=== PATIENT | female | born 1960 | race Caucasian/White ===

== ENCOUNTER 2022-08-08 08:30 | Outpatient (CLI) | payer OTHER, SELFPAY ==
[2022-08-08 10:16] LABS: Chloride* 104 mmol/L (96-114); Potassium* 4.7 mmol/L (3.6-5.1); Sodium* 139 mmol/L (135-149)
[2022-08-08 10:19] LABS: Blood Urea Nitrogen* 14 mg/dL (7-30); Carbon Dioxide* 29 mmol/L (20-32); Cholesterol* 221 mg/dL (90-199); Creatinine* 0.5 mg/dL (0.5-1.5); Estimated Glomerular Filt Rate 106 ml/min
[2022-08-08 10:20] LABS: Calcium* 8.8 mg/dL (8.4-10.6); Glucose* 88 mg/dL (60-115); HDL Cholesterol* 105 mg/dL (>=50); LDL Cholesterol Calculated 100 mg/dL (<100); Triglycerides* 79 mg/dL (40-149)
[2022-08-08 10:34] LABS: Creatinine Urine 113.9 mg/dL
[2022-08-08 10:38] LABS: Microalbumin Creatinine Ratio 0 mg/g (0-30); Microalbumin Urine < 1 mg/dL
== END 2022-08-08 08:31 | disposition home or self-care (01) ==
PROVIDERS: PCP Family Medicine; Visit Provider Family Medicine
DX: Z00.00 Encounter for general adult medical examination without abnormal findings (principal); E10.9 Type 1 diabetes mellitus without complications; I10 Essential (primary) hypertension; Z13.6 Encounter for screening for cardiovascular disorders
CPT/HCPCS: 80048; 80061; 82043; 82570

== ENCOUNTER 2023-10-09 09:26 | Outpatient (CLI) | payer OTHER, SELFPAY | END 2023-10-09 09:27 | disposition home or self-care (01) | LOC: NFLDREF 09:27 | PROVIDERS: PCP Family Medicine; Visit Provider Family Medicine | DX: I10 Essential (primary) hypertension (principal); E10.9 Type 1 diabetes mellitus without complications | CPT/HCPCS: 80048; 80061 ==

== ENCOUNTER 2023-10-21 08:29 | Outpatient (CLI) | payer OTHER, SELFPAY ==
--- OUTSIDE RECORDS SUMMARY | 2023-10-21 08:31 | XMS_ITS | Clinical Summary ---
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 EHR Incentive [facility],which states Providers who transition their patient to another setting of careor provider of care or refers their patient to another provider of care shouldprovide summary care record for each transition of care or referral. [facility] Allergies No known active allergies Medications Medication Sig Dispensed Refills Start Date End Date Status 1nsulin syringe-needle 31G X 5/16 inch 0.3 mL (BD INSULIN SYRINGE ULTRAFINE) 31G X 5/16 0.3 ML Inject 3-4 [place] subcutaneously daily (every 24 hours). LW Addl Instr:Indicated for: Diabetes 100 3 12/16/2010 Active Insulin Infusion Pump Supplies [employer]-Insulin pump supplies (infusion sets and cartridge) 90 each 3 09/15/2013 Active Blood Glucose Monitoring Suppl (TRUE METRIX AIR GLUCOSE METER) W/DEVICE KIT To test glucose with insulin pump 1 each 0 11/22/2014 Active aspirin 81 MG tabletIndications: Type 1 diabetes mellitus without complication (HRC) Take 1 Tab by mouth daily. 100 Tab 3 09/02/2017 Active KRISS CONTOUR NEXT test stripsIndications: Type 1 diabetes mellitus without complication (HRC) USE 1 STRIP TO TEST SIX TIMES A DAY. 600 Strip 3 01/20/2018 Active Continuous Blood Gluc Fruit And Vegetable Inspector ([employer] ALFREDO READER) SELENE Use with [employer]io Personal Sensors 1 Device 0 02/18/2018 Active Continuous Blood Gluc Sensor (FREESTYLE ALFREDO SENSOR SYSTEM) MISC 1 sensor every 10 days 3 Each 11 02/18/2018 Active insulin aspart (NOVOLOG) 100 UNIT/ML injection (vial)Indications: Type 1 diabetes mellitus without complication (HRC) INJECT SUBCUTANEOUSLY 35 TO 45 UNITS PER DAY VIA INSULIN PUMP. 40 mL 1 01/10/2019 Active blood glucose (KRISS CONTOUR NEXT) test stripIndications:T ype 1 diabetes mellitus without complication (HRC) Use 1 Strip to test six times a day. 600 Strip 3 01/10/2019 Active insulin glargine (LANTUS) 100 UNIT/ML injection Inject 14 Units subcutaneously daily. For pump failure. 10 mL 1 01/10/2019 Active glucagon, human recombinant, (GLUCAGON,HUMAN RECOMBINANT) 1 MG injection Inject 1 mg subcutaneously once for 1 dose. 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 oniel litus 01/10/2019 Macular degeneration 04/01/2017 Insulin pump status 01/29/2012 Type 1 diabetes mellitus 12/28/2003 Overview: LW Onset: [id number] Asymptomatic varicose veins 12/28/2003 Overview: LW Onset: [id number] ; Varicose Veins Resolved Problems Problem Noted Date Diagnosed Date Resolved Date 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 04/01/2017 04/01/2017 Immunizations Name Administration Dates Next Due Flu Vac Preserv Free (3+yrs) 07/18/2010,08/06/20 09,08/22/2005 Influenza IIV4 (Quadrivalent) 0.5mL (32667) 10/2014 Influenza, Unspecified Formulation 09/22/2003 PPSV23 (Pneumovax) 08/22/2005 TDAP (BOOSTRIX) 05/25/2013 Td 12/28/2003 Family History Medical History Relation Name Comments Cancer Mother pancreatic Diabetes Brother 1 Diabetes Brother 2 Heart Disease Maternal Grandfather Cancer Maternal Grandmother Relation Name Status Comments Father Alive Mother Brother 1 Alive Brother 2 Alive Brother 3 Alive Maternal Grandfather Maternal Grandmother Paternal Grandfather Paternal Grandmother Sister Alive Social History Tobacco Use Types Packs/Day Years Used Date Smoking Tobacco: Never Smokeless Tobacco: Never Alcohol Use Standard Drinks/Week Comments Yes 2 (1 standard drink = 0.6 oz pur e alcohol) 2-3 drinks weekly Sex and Gender Information Value Date Recorded Sex Assigned at Not on file Gender Identity Not on file Sexual Orientation Not on file Last Filed Vital Signs Vital Sign Reading Time Taken Comments Blood Pressure 133/69 01/10/2019 9:51 AM CDT Pulse 71 01/10/2019 9:51 AM CDT Temperature 36.6 ??C (97.9 ??F) 08/13/2010 2 :06 PM CDT ORAL C: 36.6 C Respiratory Rate 16 08/13/2010 2:06 PM CDT Oxygen Saturation 99% 07/18/2010 11: 36 AM CDT Inhaled Oxygen Concentration - - Weight 67.8 kg (149 lb 6.4 oz) 01/10/2019 9:51 AM CDT Height 172 cm (5' 7.72) 01/10/2019 9:5 1 AM CDT Body Mass Index 22.91 01/10/2019 9:51 AM CDT Plan of Treatment Health Maintenance Due Date Last Done Comments Colon Cancer Screening Plan Due 1960 Diabetes: Eye Exam 1960 Hep C Screening (Preventive Services) 1960 COVID-19 Vaccine (#1) 1960 HIV Screening (Preventive Services) 1976 Adult Preventive Visit 01/23/1978 Pneumococcal (2 - PCV) 08/22/2006 08/22/2005 Zoster/Shingles (1 of 2) 01/23/2010 Mammogram 12/08/2012 12/08/2011, 01/11, 12/15/2008, Additional history exists Cervical Cancer Screening Due 06/02/2014 06/01/2014, 05/25/2013, 01/19/2009, Additional history exists Diabetes: Foot Exam 09/07/2018 09/07/2017 (Completed ) Diabetes: Creatinine 12/08/2018 12/08/2017, 12/24/2016, 12/27/2013, Additional history exists Diabetes: Urine Microalbumin 12/08/2018 12/08/2017, 12/24/2016, 07/12/2015, Additional history exists Diabetes: HGBA1C 04/11/2019 01/10/2019, , 12/08/2017, Additional history exists Diabetes: Lipid Panel 12/08/2022 12/08/2017 , 12/24/2016, 07/12/2015, Additional history exists DTaP/Tdap/Td (2 - Tdap) 05/25/2023 05/25/2013, 12/27 Influenza (#1) 2023 07/13/2020, 08/13, 08/09/2018, Additional history exists HepA Aged Out No longer eligi ble based on patient's age to complete this topic HepB Aged Out No longer eligi ble based on patient's age to complete this topic Hib Aged Out No longer eligi ble based on patient's age to complete this topic IPV ([place]) Aged Out No longer eligi ble based on patient's age to complete this topic MCV4 Aged Out No longer eligi ble based on patient's age to complete this topic Care Teams Solar Pool Heating Installer Relationship Specialty Start Date End Date Clinician, Not Found, [place] [address] PCP - General 03/19/18
--- NOTE | 2023-10-21 08:45 | CRLHL7_ITS ---
For Patients: As a result of the Cures Act, medical imaging exams and procedure reports are released immediately into your electronic medical record. You may view this report before your referring provider. If you have questions, please contact your health care provider. BILATERAL SCREENING MAMMOGRAM WITH COMPUTER-AIDED DETECTION AND TOMOSYNTHESIS TECHNIQUE: CC and MLO views were obtained. These mammographic images have been obtained using full-field digital technique. These mammographic images were interpreted with the benefit of computer-aided detection. Breast Tomosynthesis was used in this interpretation. COMPARISON FILM: 02/06/22, 11/12/20, 05/04/19. FINDINGS: There are scattered areas of fibroglandular density IMPRESSION: There is no radiographic evidence for malignancy. ASSESSMENT: BI-RADS Category 1: Negative RECOMMENDATION: Routine screening mammogram in 1 year. A lay language report of this examination will be provided to the patient. HENNY DESAI M.D. Diagnostic/Nuclear Medicine Radiologist [email or web address] AUGIE:[email or web address] Transcribed: 3:12 p.mJaren walker/Dictated by: Henny Desai MD @ 10/22/2023 8:38:00 AM (Electronically Signed)
== END 2023-10-21 08:30 | disposition home or self-care (01) ==
LOC: MAMMO 08:30
PROVIDERS: PCP Family Medicine; Visit Provider Family Medicine
DX: Z12.31 Encounter for screening mammogram for malignant neoplasm of breast (principal)
CPT/HCPCS: 77063; 77067

== ENCOUNTER 2025-01-06 13:08 | Outpatient (CLI) | payer OTHER, SELFPAY ==
--- NOTE | 2025-01-06 13:20 | CRLHL7_ITS ---
For Patients: As a result of the Century Cures Act, medical imaging exams and procedure reports are released immediately into your electronic medical record. You may view this report before your referring provider. If you have questions, please contact your health care provider. BILATERAL SCREENING MAMMOGRAM WITH COMPUTER-AIDED DETECTION AND TOMOSYNTHESIS TECHNIQUE: CC and MLO views were obtained. These mammographic images have been obtained using full-field digital technique. These mammographic images were interpreted with the benefit of computer-aided detection. Breast Tomosynthesis was used in this interpretation. COMPARISON FILM: 10/21/23, 02/06/22, 12/13/21. FINDINGS: There are scattered areas of fibroglandular density. IMPRESSION: There is no radiographic evidence for malignancy. ASSESSMENT: BI-RADS Category 1: Negative RECOMMENDATION: Routine screening mammogram in 1 year. A lay language report of this examination will be provided to the patient. Adam Haskins M.D. Diagnostic Radiologist [email or web address] SP/Dictated by: Adam Haskins MD @ 01/12/2025 10:30:00 AM (Electronically Signed)
== END 2025-01-06 13:09 | disposition home or self-care (01) ==
LOC: MAMMO 13:08
PROVIDERS: PCP Family Medicine; Visit Provider Family Medicine
DX: Z12.31 Encounter for screening mammogram for malignant neoplasm of breast (principal)
CPT/HCPCS: 77063; 77067

== ENCOUNTER 2025-01-25 09:49 | Outpatient (CLI) | payer MEDICARE, SELFPAY ==
[2025-01-25 14:11] LABS: Creatinine Urine 21.1 mg/dL
[2025-01-25 14:16] LABS: Microalbumin Creatinine Ratio 40 mg/g (0-30); Microalbumin Urine < 1 mg/dL
== END 2025-01-25 09:50 | disposition home or self-care (01) ==
PROVIDERS: PCP Family Medicine; Visit Provider Family Medicine
DX: E10.9 Type 1 diabetes mellitus without complications (principal); I10 Essential (primary) hypertension; Z13.6 Encounter for screening for cardiovascular disorders; Z79.4 Long term (current) use of insulin
CPT/HCPCS: 80048; 80061; 82043; 82570

== ENCOUNTER 2025-04-28 11:30 | Outpatient (CLI) | payer MEDICARE, SELFPAY | END 2025-04-28 11:31 | disposition home or self-care (01) | LOC: NFLDREF 04-30 05:58 | PROVIDERS: PCP Family Medicine; Referring Provider Family Medicine; Visit Provider Family Medicine | DX: E10.9 Type 1 diabetes mellitus without complications (principal); I10 Essential (primary) hypertension; B35.1 Tinea unguium | CPT/HCPCS: 82947; 84681 ==

== ENCOUNTER 2025-08-10 10:28 | Outpatient (CLI) | payer MEDICARE, SELFPAY | END 2025-08-10 10:29 | disposition home or self-care (01) | PROVIDERS: PCP Family Medicine; Visit Provider Family Medicine | DX: R53.83 Other fatigue (principal) | CPT/HCPCS: 82306; 84443 ==

== ENCOUNTER 2025-09-27 08:19 | Outpatient (CLI) | payer MEDICARE, SELFPAY ==
--- NOTE | 2025-09-27 08:30 | CRLHL7_ITS ---
For Patients: As a result of the Century Cures Act, medical imaging exams and procedure reports are released immediately into your electronic medical record. You may view this report before your referring provider. If you have questions, please contact your health care provider. XR DXA Bone Mineral Density (BMD) Reason for exam: Screening for osteoporosis. Current height (inches): 66.0 Weight (lbs.): 148.0 Menopause age: 55 Ethnicity: White 1. Have you had a previous hip or vertebral fracture? No. 2. Have you had any fractures during your adult life which did not result from significant trauma (e.g., auto accident)? No. 3. Did either of your parents have a hip fracture? No. 4. Do you smoke? No. 5. Have you ever taken Glucocorticoids? No. 6. Do you have rheumatoid arthritis? No. 7. Do you have secondary osteoporosis? No. 8. Do you drink 3 or more alcoholic drinks per day? No. 9. Are you being treated for osteoporosis? No. 10. Have you ever taken any of the following medications: Actonel, Evista, Fosamax, Miacalcin, Reclast, Boniva, Forteo, HRT (i.e., estrogen/hormone therapy), Protelos, Prolia, Vitamin D, Calcium, other ??? please specify. ANSWER: Yes; vitamin D and calcium. 11. Do you have any of the following medical conditions: Anorexia or bulimia, asthma or emphysema, end stage renal disease, hyperparathyroidism, any seizure disorders, cancer, inflammatory bowel diseases, hysterectomy, other ??? please specify. ANSWER: No. 12. What was your maximum height (inches)? 66. 13. Do you perform weightbearing exercise regularly? Yes. 14. Do you regularly consume dairy products? Yes. 15. Do you drink caffeinated beverages? Yes. 16. At what age did your period start? 16. 17. Are you premenopausal? No. 18. How many full-term pregnancies have you had? 3. 19. Have you ever missed your period for more than 6 months in a row (not including or menopause)? No. TECHNIQUE: Bone mineral density study was performed using the shipbeat. FINDINGS: The results of the study expressed as bone mineral density (BMD) are as follows: Lumbar Spine L1 to L4: BMD: 0.874 g/cm2. T-score: -1.6. Z-score: 0.2. HIP: Left Femoral Neck: BMD: 0.780 g/cm2. T-score: -0.6. Z-score: 0.9. Left Total Hip: BMD: 0.983 g/cm2. T-score: 0.3. Z-score: 1.6. IMPRESSION: Osteopenia. FRAX 10-year Fracture Risk Major Osteoporotic Fracture: 7.3% Hip Fracture: 0.4% Reported Risk Factors: [place] () Neck BMD = 0.780, BMI = 23.9. ADAM RICCI M.D. Diagnostic Radiologist [email or web address] Transcribed: 2:[address]/Dictated by: Adam Ricci MD @ 09/27/2025 9:07:00 AM (Electronically Signed)
== END 2025-09-27 08:20 | disposition home or self-care (01) ==
LOC: RAD 08:21
PROVIDERS: PCP Family Medicine; Visit Provider Family Medicine
DX: Z13.820 Encounter for screening for osteoporosis (principal); M81.0 Age-related osteoporosis without current pathological fracture; Z79.899 Other long term (current) drug therapy
CPT/HCPCS: 77080

== ENCOUNTER 2025-10-08 02:50 | Emergency (ER) | payer MEDICARE, SELFPAY ==
--- OUTSIDE RECORDS SUMMARY | 2025-10-08 02:52 | XMS_ITS | Clinical Summary ---
Author Organization [facility] Address [address] [place] [address] Care Team Providers Care Director [facility] Name Role Phone Adam Noel MD Primary Care Provider + Allergies No known active allergies Medications MedicationSigDispense QuantityRefillsLast FilledStart DateEnd DateStatus NOVOLOG U-100 INSULIN ASPART 100 unit/mL injection Indications:Diabetes mellitus type 1, controlled, without complications (HC)Uses about 40 units a day per insulin pump. 40 mL 121Active lisinopriL (PRINIVIL; ZESTRIL) 10 mg tablet Take 10 mg by mouth once daily.04/09/2022ctive DexParastructure G4 Collaborative Teacher for continuous blood glucose monitor (CGM) To be used to read blood sugars follow explosion welder directions. 1 Each 04/22/2022ctive Active Problems ProblemNoted DateDiagnosed DateControlled diabetes mellitus type 1 without vjkeefxgvemnl59/08/2017 Resolved Problems ProblemNoted DateDiagnosed DateResolved DateScreen for colon oczocl0508/13/2016 08/09/2018 Overview (08/13/2016): Colonoscopy 07/2016 normal repeat in 10 years Immunizations ImmunizationAdministration DatesNext DueAMB Influenza, IIV3 (Age >=3 years)(Flu Clinic Only)08/17/2013Influenza, WYK637Pneumococcal Poly,23-Valent (Pneumovax)08/22/2005Tdap05/25/2013 Family History Medical HistoryRelationNameCommentsDiabetesBrother 1type 1Diabetes type IBrother 1DiabetesBrother 2Type 1CancerFathermesothelioma cancerCancer-pancreaticMother deceasedDiabetes type ISisterRelationNameStatusCommentsBrother 1Brother 2Father DeceasedMotherSister Social History Tobacco UseTypesPacks/DayYears UsedDateSmoking Tobacco: NeverSmokeless Tobacco: Never Tobacco Cessation:Counseling Given: Yes Alcohol UseStandard Drinks/WeekCommentsYes1 (1 standard drink = 0.6 oz pure alcohol)PHQ-2AnswerDate RecordedPHQ-2 TOTAL JSWGE673ocial Connections AnswerDate RecordedDo you often feel lonely or isolated from those around you?0 04/08/2024Financial Resource StrainAnswerDate RecordedDifficulty of Paying Living Jewxdufx826ifficulty of Paying Living ExpensesNot on file 04/08/2024Food InsecurityAnswerDate RecordedDo you worry your food will run out before you are able to buy more?Transportation NeedsAnswerDate RecordedDoes lack of transportation keep you from medical appointments?1 04/08/2024oes lack of transportation keep you from work, meetings or getting things that you need?UtilitiesAnswerDate RecordedDo you have trouble paying for utilities (for example, heat, electricity, water, phone)? CommentsNoSex and Gender InformationValueDate RecordedSex Assigned at BirthNot on fileLegal QuoArggbf90/06/2013 4:36 PM CSTGender IdentityNot on file Sexual OrientationNot on file Last Filed Vital Signs Vital SignReadingTime TakenCommentsBlood Nentorbt793/7906 7:07 AM CDT Wvzyh279104/08/2024 7:07 AM BVCIheoiiychjf11.5 ??C (97.7 ??F)07/01/2023 12:03 PM CDTRespiratory Rate--Oxygen Eykllxjeur449%04/08/2024 7:07 AM CDTInhaled Oxygen Concentration--Snjkfs95.9 kg (154 lb)04/08/2024 7:07 AM FEKTnmffi945.6 cm (5' 6)04/22/2022 1:16 PM CDTBody Mass Index24.8604/22/2022 1:16 PM CDT Plan of Treatment Health MaintenanceDue DateLast DoneCommentsHIV for age 15-Hepatitis C screening for age 18-7901/23/1978Pneumococcal series for age 50+ (2 of 2 - PCV)RSV vaccine for adults or (1 - Risk 50-74 years 1-dose series)01/23/2010Zoster (shingles) series for age 50+ (1 of 2) 01/23/2010Mammogram for age 40-75, 06/27/2015BMI (ht and wt on same day) for age 18+, 09/14/2018, 08/09/2018, Additional history existsDepression screening for age 12+, 08/09/2018, 08/19/2017Tetanus cpzwezf74Lipids for age 45-7508/09/2023 08/09/2018DEXA/DXA scan for age 65+5COVID-19 vaccine series (2024- season), 02/11/2022, 08/20/2021, Additional history existsInfluenza Vaccine (#1), 08/17/2013Colonoscopy through age 756110/13/2015, 08/13/2016Pap test for age 21-04/22/2022, 04/22/2022, 05/18/2014 (Completed outside of [facility])Hepatitis B series for 19+Aged OutNo longer eligible based on patient's age to complete this topic Procedures Procedure NamePriorityDate/TimeAssociated DiagnosisCommentsHPV HIGH RISKRoutine 04/22/2022 2:14 PM CDT Cervical cancer screening LIPID PANEL W REFLEX MEASURED LDLAdd On08/09/2018 9:04 AM CDT Diabetes mellitus type 1, controlled, without complications (HC) LESFCFMJRYR48/02/2016 7:47 AM CDT XR MAMMO BILAT SCREEN FFDM (IA)Pcmgyig2107/22/2016 10:50 AM CDT Visit for screening mammogram from Last 3 Months or Most Recently Relevant to Health Maintenance Results * HPV HIGH RISK (04/22/2022 2:14 PM CDT)ComponentValueRef RangeTest Method Analysis TimePerformed AtPathologist SignatureTYPE 16NegativeNegative 04/24/2022 4:32 PM CDTAL[facility]-CENTRAL LABORATORYTYPE 18 KhysmvkmPmzpvowm45/14/2022 4:32 PM CDSELECT [facility]ITALCENTRAL LABORATORYOTHER HIGH RISK MDIDVCgplirecPpoeqnre24/14/2022 4:32 PM CDSELECT [facility]TY [facility]PITALCENTRAL LABORATORYSpecimen (Source)Anatomical Location / LateralityCollection Method / VolumeCollection TimeReceived TimeOther (Cervical)Non-Blood / Xeixsjn1304/22/2022 2:14 PM CDT04/23/2022 11:53 AM CDT Narrative [facility]-CENTRAL LAB[facility]ATORY - 04/24/2022 4:32 PM CDT HPV types 16, 18, 31, 33, 35, 39, 45, 51, 52, 56, 58, 59, 66 and 68 DNA were undetectable or below the pre-set threshold. Methodology: Suman Saravanan 4800 HPV Test Authorizing ProviderResult TypeResult StatusHeather Melisa Peters [facility] FOR CHILDRENICROBIOLOGY Final ResultPerforming OrganizationAddressCity/State/ZIP CodePhone Number [facility]AL LABORATORY [address] [place] [address], * LIPID PANEL W REFLEX MEASURED LDL (08/09/2018 9:04 AM CDT)ComponentValueRef RangeTest MethodAnalysis TimePerformed AtPathologist Signature CHOLESTEROL,[id number] - 199 mg/dL08/09/2018 1:14 PM CDTDISTRICT OHIO COUNTY HOSPITALTRIGLYCERIDES48<150 mg/dL08/09/2018 1:14 PM CDTDISTRICT OHIO COUNTY HOSPITALHDL LOEWFNHKHJF58>40 mg/dL08/09/2018 1:14 PM CDTDISTRICT ONE [facility]GEENON-HDL BJXTMUBBNMU988<145 mg/dl08/09/2018 1:14 PM CDTDISTRICT OHIO COUNTY HOSPITALCHOL/HDL RATIO2.16<4.501 1:14 PM CDTDISTRICT OHIO COUNTY HOSPITALLDL VEQXKOUCRPV93<=130 mg/dL 08/09/2018 1:14 PM CDTDISTRICT OHIO COUNTY HOSPITALPROVIDER ORDERED KFJORYVSKRVK98/29/2018 1:14 PM CDTDISTRICT OHIO COUNTY HOSPITALSpecimen (Source)Anatomical Location / LateralityCollection Method / VolumeCollection TimeReceived TimeBloodBLOOD SPECIMEN / UnknownVenipuncture / Cwfrsib0408/09/2018 9:04 AM CDT1 9:04 AM CDT Narrative Authorizing ProviderResult TypeResult StatusDavid Andre Noel MDCHEMISTRY Final ResultPerforming OrganizationAddressCity/State/ZIP CodePhone Number [facility] [address] [place] [address] * COLONOSCOPY (08/13/2016 7:47 AM CDT)Specimen (Source)Anatomical Location / LateralityCollection Method / VolumeCollection TimeReceived Time08/13/2016 7:47 AM CDT Narrative 08/13/2016 7:47 AM CDT Patient Name: Lianne Shelton ? Procedure Date: 08/13/2016 ? Gender: Female ? Date of : 1960 Admit Type: Outpatient ? Procedure: ?Colonoscopy Proceduralist: ?Ramy Donnelly MD Indications/Pre-Op Diagnosis: Screening for colorectal malignant neoplasm, ?This is the patient's first colonoscopy Medications: ?Fentanyl 100 micrograms IV, Midazolam 2 mg IV, ?The level of sedation administered was moderate ? Procedure Description: ? The patient had risks, benefits and alternatives explained to and gave ? informed consent. The patient had a stable cardiopulmonary status and ? judged an adequate candidate for conscious sedation. ? The [facility]-Q290AL [id number] was passed through the anus and advanced to the ? cecum, identified by appendiceal orifice and ileocecal valve. The ? colonoscopy was performed without difficulty. The patient tolerated the ? procedure well. The quality of the bowel preparation was good. The ? ileocecal valve, appendiceal orifice, and rectum were photographed. ? Complications: ?No immediate complications. Estimated Blood Loss & Specimen: ? Estimated blood loss: none. Specimen collected - Yes and sent to ? Laboratory ? Findings: ? The perianal and digital rectal examinations were normal. ? The entire examined colon appeared normal on direct and retroflexion ? views. ? Impressions/Post-Op Diagnosis: ? - The entire examined colon is normal on direct and retroflexion views. ? - No specimens collected. ? Recommendation: ? - Patient has a contact number available for emergencies. The signs and ? symptoms of potential delayed complications were discussed with the ? patient. Return to normal activities tomorrow. Written discharge ? instructions were provided to the patient. ? - Resume previous diet. ? - Continue present medications. ? - Repeat colonoscopy in 10 years for screening purposes. ? Ramy Donnelly MD 08/13/2016 8:19:07 AM This report has been signed electronically. Note Initiated On: 08/13/2016 7:47 AM Scope In: 7:52:40 AM Scope Withdrawal Time 0 hours 9 minutes 21 seconds Scope Out: 8:10:59 AM Procedure Note Ramy Donnelly MD - 08/13/2016 8:19 AM CDT Patient Name: Lianne Shelton Procedure Date: 08/13/2016 Gender: Female Date of : 1960 Admit Type: Outpatient Procedure: Colonoscopy Proceduralist: Ramy Donnelly MD Indications/Pre-Op Diagnosis: Screening for colorectal malignant neoplasm, This is the patient's first colonoscopy Medications: Fentanyl 100 micrograms IV, Midazolam 2 mgIV, The level of sedation administered wasmoderate Procedure Description: The patient had risks, benefits and alternatives explained to andgave informed consent. The patient had a stable cardiopulmonary status and judged an adequate candidate for conscious sedation. The PCF-Q290AL [id number] was passed through the anus and advanced tothe cecum, identified by appendiceal orifice and ileocecal valve. The colonoscopy was performed without difficulty. The patient toleratedthe procedure well. The quality of the bowel preparation was good. The ileocecal valve, appendiceal orifice, and rectum were photographed. Complications: No immediate complications. Estimated Blood Loss & Specimen: Estimated blood loss: none. Specimen collected - Yes and sent to Laboratory Findings: The perianal and digital rectal examinations were normal. The entire examined colon appeared normal on direct and retroflexion views. Impressions/Post-Op Diagnosis: - The entire examined colon is normal on direct and retroflexionviews. - No specimens collected. Recommendation: - Patient has a contact number available for emergencies. The signsand symptoms of potential delayed complications were discussed with the patient. Return to normal activities tomorrow. Written discharge instructions were provided to the patient. - Resume previous diet. - Continue present medications. - Repeat colonoscopy in 10 years for screening purposes. Ramy Donnelly MD 08/13/2016 8:19:07 AM This report has been signed electronically. Note Initiated On: 08/13/2016 7:47 AM Scope In: 7:52:40 AM Scope Withdrawal Time 0 hours 9 minutes 21 seconds Scope Out: 8:10:59 AM Authorizing ProviderResult TypeResult StatusMarmelinda Donnelly MDPROCEDURE ORD Final Result * XR MAMMO BILAT SCREEN FFDM (07/22/2016 10:50 AM CDT)Anatomical Region LateralityModalityBREASTS, Breast Left, Breast RightBilateralMammography Specimen (Source)Anatomical Location / LateralityCollection Method / Volume Collection TimeReceived Time Impressions 07/22/2016 12:47 PM CDT There is no radiographic evidence for malignancy. Recommend annual mammograms. A lay language report of this examination will be provided to the patient. MAMMOGRAM ASSESSMENT: ??ACR 1 Negative Narrative 07/22/2016 12:47 PM CDT XR MAMMO BILAT SCREEN FFDM [G0202.0] CLINICAL HISTORY: ??This is an asymptomatic 56 y.o. patient. INDICATION FOR EXAM: Mammogram Screening. TECHNIQUE: CC & MLO views were obtained. This digital study was evaluated with the assistance of Computer-Aided Detection. COMPARISON FILM: Yes 06/27/15 [facility] FINDINGS: ??Mammographically, the breast tissue is heterogeneously dense, which could obscure detection of small masses. There are no dominant masses, suspicious micro calcifications or areas of architectural distortion. Authorizing ProviderResult TypeResult StatusAngela Kyo Bolton MDMAMMOFinal Result from Last 3 Months or Most Recently Relevant to Health Maintenance Insurance * Guarantor: Lianne Shelton TypeRelation to PatientDate of BirthPhone Billing AddressPersonal/BiqpjrIvos1960 [address] [address] [address] [phone] * Guarantor: Lianne Shelton TypeRelation to PatientDate of BirthPhone Billing [id number] [address] [id number] Care Teams Team MemberRelationshipSpecialtyStart DateEnd Date Adam Noel MD [address] [facility] [place] [address] PCP - GeneralFamily Practice04/22/22
[2025-10-08 02:55] VITALS: BP 154/74; PULSE 88; RESP 18; TEMP 36.9; O2SAT 99; BMI 23.4
[2025-10-08 03:16] LABS: Appearance Urine Cloudy (Clear)
--- NOTE | 2025-10-08 03:42 | ED_ITS ---
HPI - General Adult General Chief complaint: Urogenital Problems, Female Stated complaint: Possible bladder infection Time Seen by Provider: 10/08/25 03:40 History of Present Illness HPI narrative: CC: Dysuria, Frequency pt. with symptoms since last night. denies hematuria, fe vers, n/v, diarrhea. 65-year-old woman presenting to the emergency department with concern frequency and dysuria beginning last night. No fever. No vomiting or nausea. No hematuria. Has been sometime since urinary tract infection. Does have a history of diabetes. Related Data Home Medications ?Medication ?Instructions ?Recorded ?Confirmed vit C 250 mg-E 90 mg-zinc 40 1 tab PO QDAY 08/08/22 mg-copper 1 mw-abxnva-yloxfj chew tablet (PreserVision AREDS-2) Insulin pump subcut (via wearable injectr ) 10/07/23 08/10/25 blood-glucose sensor (Dexcom G6 10/07/23 10/08/25 Sensor device) glucagon HCl 1 mg/mL solution for 1 mg IM .as needed P RN 10/07/23 10/08/25 injection aspirin 81 mg chewable tablet 81 mg PO QDAY 10/13/24 1 12/09/24 (Aspirin Childrens) Previous Rx's ?Medication ?Instructions ?Recorded insulin aspart U-100 100 unit/mL 35 unit (0.35 mL) con tinuous 04/26/25 subcutaneous solution subcutaneous infusion QDAY 9 0 days #30 mL lisinopril 20 mg tablet 20 mg PO QDAY #90 tabs 05/10 Allergies Allergy/AdvReac Type Severity Reaction Status Date / Time No Known Drug Allergies Allergy Verified 10/08/25 02:57 Review of Systems Status of ROS: Reports: 6 or more systems reviewed and unremarkable except as noted in History and below [facility] Medical History Facial basal cell cancer ?C44.310 - Basal cell carcinoma of skin of unspecified parts of face (ICD-10) Macular degeneration ?H35.30 - Unspecified macular degeneration (ICD-10) Onychomycosis ?B35.1 - Tinea unguium (ICD-10) Essential (primary) hypertension ?I10 - Essential (primary) hypertension (ICD-10) Type 1 diabetes mellitus without complications ?E10.9 - Type 1 diabetes mellitus without complications (ICD-10) Family History Brother Diabetes Social History Narrative: , works at [employer], nonsmoker, three kids, social ETOH What is your current living situation?: I presently have a place to live Problems where you live: no known problems In the past 12 months, utilities in danger of being shut off: no In past 12 months, lack of transportation kept you from medical appts, meetings, work, or getting things needed for daily living: no In the past 12 mos, have been you worried that your food would run out before you had money to buy more?: never true In the past 12 mos, the food you bought just didn't last and you didn't have money to buy more?: never true Smoking Status: Never smoker Second hand tobacco smoke exposure: No How often do you have a drink containing alcohol: never AUDIT-C Alcohol total score: 0 Non-prescribed substance use: denies use How often does anyone, including family, friends and others, physically hurt you : never How often does anyone, including family, friends and others, insult or talk down to you: never How often does anyone, including family, friends and others, threaten you with harm: never How often does anyone, including family, friends and others, scream or curse at you: never Exam Narrative: Exam Narrative: Pleasant. NAD. Skin is warm and dry. Breathing easily. Heart in regular rate. Abdomen is soft with a little discomfort in the suprapubic area. No flank pain. Const: Vital Signs, click to edit/add: Vital Signs - 24 hr 10/08/25 02:55 Temperature 98.5 F Pulse Rate [Right Pulse Oximeter] 88 Respiratory Rate 18 Blood Pressure [Ri ght Upper Arm] 154/74 H Pulse Oximetry 99 Oxygen Delivery Me thod Room Air Documenting provider has reviewed patient's vital signs: yes Course Vital Signs Vital signs: Initial Vital Signs Temperature 98.5 F 10/08/25 02:55 Temperature Source Temporal Artery Scan 10/08/25 02:55 Pulse Rate 88 10/08/25 02:55 Respiratory Rate 18 10/08/25 02:55 Blood Pressure 154/74 H 10/08/25 02:55 Blood Pressure Mean 100 10/08/25 02:55 Blood Pressure Position Sitting 10/08/25 02:55 Pulse Oximetry 99 10/08/25 02:55 Oxygen Delivery Method Room Air 10/08/25 02:55 Vital Signs Temperature 98.5 F 10/08/25 02:55 Pulse Rate 88 10/08/25 02:55 Respiratory Rate 18 10/08/25 02:55 Blood Pressure 154/74 H 10/08/25 02:55 Pulse Oximetry 99 10/08/25 02:55 Oxygen Delivery Method Room Air 10/08/25 02:55 Temperature 98.5 F 10/08/25 03:59 Pulse Rate 81 10/08/25 03:59 Respiratory Rate 18 10/08/25 03:59 Blood Pressure 141/71 H 10/08/25 03:59 Pulse Oximetry 99 10/08/25 03:59 Oxygen Delivery Method Room Air 10/08/25 03:59 Medical Decision Making MDM Narrative Medical decision making narrative: Symptoms seem consistent with urinary tract infection, cystitis. Does not of the kind of pain I would associate with ureteral stone. Has not had other discharge. Possible aseptic cystitis? Verify with urinalysis. Pending results here would evaluate further. No reason to think that there is nephritis or nephropathy otherwise at this point. Without other vaginal symptoms less likely to have BV or similar. Urinalysis does look positive. With symptoms as described I think is reasonable to treat and follow-up with urine culture particularly in the setting of diabetes. See patient discharge plan for further discussion Stay well hydrated with water. We will be culturing your urine. We will call if change in treatment looks like needs to be made. Prescribing cephalexin as antibiotic and phenazopyridine for the burning from [facility]. Contrary to how the prescription is written, 6 days should be enough for treatment. Can take up to 800 mg of ibuprofen or up to 1000 mg of acetaminophen per dose Medical Records Medical records reviewed: Yes I reviewed the patient's medical records Lab Data Lab results reviewed: Yes I reviewed the patient's lab results Labs: Lab Results 10/08/25 Range/Units 02:54 Urine Color Yellow (Yellow) Urine Appearance Cloudy A (Clear) Urine pH 7.5 (5.0-8.5) Ur Specific [place] 1.015 (1.000-1.030) Urine Protein 1+ A (Negative) Urine Glucose (UA) Negative (Negative) Urine Ketones Negative (Negative) Urine Blood 2+ A (Negative) Urine Nitrite Negative (Negative) Urine Bilirubin Negative (Negative) Urine Urobilinogen 0.2 (0.2-1.0) Ur Leukocyte Esterase 2+ A (Negative) Urine RBC 0-2 (0-2) Urine WBC 10-25 A (0-5) Ur Squamous Epith Cells None (None-Few) Urine Bacteria None (None) Discharge Plan Discharge Clinical Impression: Cystitis, Dysuria Patient Disposition: Home, Self-Care Condition: Stable Additional Instructions: Stay well hydrated with water. We will be culturing your urine. We will call if change in treatment looks like needs to be made. Prescribing cephalexin as antibiotic and phenazopyridine for the burning from [facility]. Contrary to how the prescription is written, 6 days should be enough for treatment. Can take up to 800 mg of ibuprofen or up to 1000 mg of acetaminophen per dose Prescriptions: No Action glucagon HCl 1 mg/mL recon soln 1 mg IM .as needed PRN (DME) Dexcom G6 Sensor Device See Rx Instructions .Route Rx Instructions: As directed Insulin pump subcut (via wearable injectr) aspirin [Aspirin Childrens] 81 mg tablet,chewable 81 mg PO QDAY insulin aspart U-100 100 unit/mL solution 35 unit continuous subcutaneous infusion QDAY 90 Days Qty: 30 3RF PreserVision AREDS-2 250-90-40-1 mg tablet,chewable 1 tab PO QDAY lisinopril 20 mg tablet 20 mg PO QDAY Qty: 90 1RF Follow Up/Referrals: Adam Noel MD [Primary Care Provider, Family Practice] Stand Alone Forms: [employer] Info Instructions
[2025-10-08 03:59] VITALS: BP 141/71; PULSE 81; RESP 18; TEMP 36.9; O2SAT 99
== END 2025-10-08 04:00 | disposition home or self-care (01) ==
PROVIDERS: Emergency Provider Family Medicine; PCP Family Medicine
DX: N30.90 Cystitis, unspecified without hematuria (principal); E10.9 Type 1 diabetes mellitus without complications; Z96.41 Presence of insulin pump (external) (internal)
CPT/HCPCS: 81001; 87086; 99283; 99284